=== PATIENT | male | born 1935 ===

== ENCOUNTER 2023-01-07 08:50 | Day surgery (SDC) | payer OTHER ==
[~2023-01-07] VITALS: Ht 172.7 cm; Wt 74.0 kg
[~2023-01-07 08:50] MED LIST: Cardura8 MG PO; FOLI1 PO; IBUP800 PO; LOSA50 PO; MEMA10 PO; Norco 10-325 T1 EACH PO; Omeprazole20 M1 PO; Prozac20 MG PO; Simvastatin20 MG PO; THIA100 PO
--- NOTE | 2023-01-07 09:45 | NUR ---
01/07/23 0945 Mariah Sheriff IN AT 0940 [place] IN AT [id number]
[2023-01-07] MEDS ORDERED: SERT25 PO (09:50)
[2023-01-07] MEDS ORDERED: CALCIUM CIT 311 EAC7 PO (09:50)
[2023-01-07] MEDS ORDERED: Aspir 8181 MG PO (09:52)
[2023-01-07] MEDS ORDERED: XTANDI40 MG PO (09:52)
== END 2023-01-07 11:00 | disposition home or self-care (01) ==
LOC: ORSCSDS 08:50
PROVIDERS: Ophthalmology
PROC: 08RK3JZ Replacement of Left Lens with Synthetic Substitute, Percutaneous Approach (ICD-10-PCS; principal; 2023-01-07 10:00)
DX: H25.12 Age-related nuclear cataract, left eye (principal); H52.202 Unspecified astigmatism, left eye; I10 Essential (primary) hypertension; F03.90 Unspecified dementia, unspecified severity, without behavioral disturbance, psychotic disturbance, mood disturbance, and anxiety; H35.30 Unspecified macular degeneration; Z85.46 Personal history of malignant neoplasm of prostate; Z79.899 Other long term (current) drug therapy; I25.10 Atherosclerotic heart disease of native coronary artery without angina pectoris; G47.33 Obstructive sleep apnea (adult) (pediatric); Z87.891 Personal history of nicotine dependence
CPT/HCPCS: J2001; J2250; J3010; J3301; J7040; V2632

== ENCOUNTER 2023-05-23 08:52 | Emergency (ER) | payer OTHER ==
[~2023-05-23] VITALS: Ht 172.7 cm; Wt 77.1 kg
[~2023-05-23 08:52] MED LIST changes: +Aspir 8181 MG PO; +CALCIUM CIT 311 EAC7 PO; +SERT25 PO; +XTANDI40 MG PO
[2023-05-23] MEDS ORDERED: LOSA25 PO (09:15)
[2023-05-23 09:50] LABS: BASOPHILS ABSOLUTE AUTO 0.04 K/mm3 (0.00-0.23); BASOPHILS PERCENT AUTO 1 % (0-2); EOSINOPHILS ABSOLUTE AUTO 0.18 K/mm3 (0.00-0.68); EOSINOPHILS PERCENT AUTO 3 % (0-6); Hematocrit 37.8 % (37.0-53.0); IMMATURE GRAN ABSOLUTE AUTO 0.01 K/mm3 (0.00-0.10); IMMATURE GRAN PERCENT AUTO 0 % (0-1); LYMPHOCYTES ABSOLUTE AUTO 1.46 K/mm3 (0.84-5.20); LYMPHOCYTES PERCENT AUTO 26 % (21-46); MONOCYTES ABSOLUTE AUTO 0.49 K/mm3 (0.16-1.47); MONOCYTES PERCENT AUTO 9 % (4-13); Mean Corpuscular HGB 30.2 pg (26.0-34.0); Mean Corpuscular HGB Conc 34.4 g/dL (31.5-36.5); Mean Corpuscular Volume 88 fL (80-100); Mean Platelet Volume 9.3 fL (9.1-12.4); NEUTROPHILS ABSOLUTE AUTO 3.52 K/mm3 (1.96-9.15); NEUTROPHILS PERCENT AUTO 62 % (41-73); Platelet Count 225 K/mm3 (150-400); RDW Coefficient Variation 12.9 % (11.7-14.2); RDW Standard Deviation 41.8 fL (35.1-46.3); Red Blood Cell Count 4.31 M/mm3 (4.30-5.90)
[2023-05-23 10:07] LABS: Albumin, Blood 3.1 g/dL (3.4-5.0); Albumin/Globulin Ratio 0.8 (0.8-1.8); Bilirubin, Total 0.2 mg/dL (0.1-1.0); Bun/Creatinine Ratio 24.8 (12.0-20.0); Calcium, Blood 8.8 mg/dL (8.5-10.1); Creatinine, Blood 0.73 mg/dL (0.60-1.20); Globulin, Blood 3.8 g/dL (2.2-4.0); Potassium, Blood 3.9 mmol/L (3.5-5.5); Total Protein, Blood 6.9 g/dL (6.4-8.2)
[2023-05-23 12:00] VITALS: BP 172/59
== END 2023-05-23 12:55 | disposition home or self-care (01) ==
LOC: ER 08:52
PROVIDERS: Family Medicine
DX: R20.2 Paresthesia of skin (principal); M79.642 Pain in left hand; R07.89 Other chest pain; F32.A Depression, unspecified; K43.9 Ventral hernia without obstruction or gangrene; F03.90 Unspecified dementia, unspecified severity, without behavioral disturbance, psychotic disturbance, mood disturbance, and anxiety; E78.5 Hyperlipidemia, unspecified; I10 Essential (primary) hypertension; Z85.048 Personal history of other malignant neoplasm of rectum, rectosigmoid junction, and anus; Z85.46 Personal history of malignant neoplasm of prostate; Z88.8 Allergy status to other drugs, medicaments and biological substances; Z79.82 Long term (current) use of aspirin; Z79.899 Other long term (current) drug therapy; Z87.891 Personal history of nicotine dependence
CPT/HCPCS: 70450; 71046; 80053; 83735; 84484; 85025; 93005; 93010; 99284-25